=== PATIENT | female | born 1950 | race African-American/Black ===

== ENCOUNTER 2017-12-15 17:37 | Emergency (ER) | payer OTHER, MEDICARE ==
[~2017-12-15] VITALS: Ht 160 cm; Wt 100.0 kg
[~2017-12-15 17:37] MED LIST: HTN MED; [UNRECOGNIZED DRUG - REMARK]
[2017-12-15 17:45] VITALS: BP 137/70; PULSE 80; RESP 16; TEMP 97.2; O2SAT 96
[2017-12-15 19:14] VITALS: BP_SYST 113; BP_SYST 135; BP_DIAS 64; BP_DIAS 75; PULSE 93; RESP 18; O2SAT 97
--- NOTE | 2017-12-15 19:39 | PD ---
HPI Chief Complaint: Medical Clearance Time Seen by Provider: 19:08 Travel History International Travel<30 days: No Contact w/Intl Traveler<30days: No Traveled to known affect area: No History of Present Illness HPI pt has sweats chills and dirrhea for 5 days took acidophilus for 2 days and now more formed stool but it is blackish and mucous covered now . 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 Patient has a history of hypertension she is on amlodipine and she also has a history of tuberculosis exposure years ago never treated but followed with serial chest x- rays. She has no cough at this time. Her complaint is sweats chills weakness and diarrhea for 5 days then stool turned blackish. PFSH Past Medical History Blood Disorders: Yes (HX HEP C) Heart Rhythm Problems: No Cardiac Catheterization: No Cardiovascular Problems: Yes (PALPITATIONS) High Cholesterol: Yes Congestive Heart Failure: No Diabetes: No Diminished Hearing: No Genitourinary: Yes (HX KIDNEY INFECTION) Hypertension: Yes Immunizations Current: Yes Myocardial Infarction: No Menopausal: Yes Past Surgical History Coronary Artery Bypass Graft: No Gynecologic Surgery: Yes (LUMP RIGHT BREAST REMOVED) Family History Family Myocardial Infarction: Yes (father, brother) Social History Alcohol Use: Yes (SOCCIALLY) Tobacco Use: No Substance Use: No Allergies-Medications (Allergen,Severity, Reaction): Coded Allergies: Iodinated Contrast- Oral and IV Dye (Verified Allergy, Severe, 12/15/17) diatrizoate meglumine (Unverified Allergy, Severe, RASH,ITCHING, 12/15/17) HIVES gadobenic acid (Unverified Allergy, Severe, RASH,ITCHING, 12/15/17) HIVES gadodiamide (Unverified Allergy, Severe, RASH,ITCHING, 12/15/17) HIVES gadoteridol (Unverified Allergy, Severe, RASH,ITCHING, 12/15/17) HIVES iodixanol (Unverified Allergy, Severe, RASH,ITCHING, 12/15/17) HIVES iohexol (Unverified Allergy, Severe, RASH,ITCHING, 12/15/17) HIVES Reported Meds & Prescriptions Reported Meds & Active Scripts Active Levaquin (Levofloxacin) 500 Mg Tablet 500 Mg PO DAILY Reported [[place] Pill] [Htn Med] Review of Systems Except as stated in HPI: all other systems reviewed are Neg General / Constitutional: Positive: Fever, Chills Gastrointestinal: Positive: Nausea, Diarrhea, Abdominal Pain Physical Exam Narrative GENERAL: Nontoxic-appearing SKIN: Warm and dry. HEAD: Atraumatic. Normocephalic. EYES: Pupils equal and round. No scleral icterus. No injection or drainage. ENT: No nasal bleeding or discharge. Mucous membranes pink and moist. NECK: Trachea midline. No JVD. CARDIOVASCULAR: Regular rate and rhythm. RESPIRATORY: No accessory muscle use. Clear to auscultation. Breath sounds equal bilaterally. GASTROINTESTINAL: Abdomen mildly obese minimal tenderness in the lower quadrants :soft, nondistended. Hepatic and splenic margins not palpable. Rectal exam was negative for Hemoccult MUSCULOSKELETAL: Extremities without clubbing, cyanosis, or edema. No obvious deformities. NEUROLOGICAL: Awake and alert. No obvious cranial nerve deficits. Motor grossly within normal limits. Five out of 5 muscle strength in the arms and legs. Normal speech. PSYCHIATRIC: Appropriate mood and affect; insight and judgment normal. Rectal exam: patient is guaiac negative stool is dark blackish stool but it is guaiac negative--> on the Hemoccult cards Data Data Last Documented VS Vital Signs Date Time Temp Pulse Resp B/P (MAP) Pulse Ox O2 Delivery O2 Flow Rate FiO2 12/15/17 22:37 12/15/17 22:35 78 18 99 Room Air 12/15/17 17:45 97.2 Orders Orders Electrocardiogram (12/15/17 19:14) Complete Blood Count With Diff (12/15/17 19:14) Comprehensive Metabolic Panel (12/15/17 19:14) Ckmb (Isoenzyme) Profile (12/15/17 19:14) Troponin I (12/15/17 19:14) Lipase (12/15/17 19:14) Chest, Pa & Lat (12/15/17 19:14) Ketorolac Inj (Toradol Inj) (12/15/17 19:45) Sodium Chlorid 0.9% 500 Ml Inj (Ns 500 M (12/15/17 19:45) Influenzae A/B Antigen (12/15/17 20:19) Urinalysis - C+S If Indicated (12/15/17 20:19) CKMB (12/15/17 19:16) CKMB% (12/15/17 19:16) Urine Culture (12/15/17 20:23) Ceftriaxone Inj (Rocephin Inj) (12/15/17 21:45) Labs Laboratory Tests Test 12/15/17 19:16 12/15/17 20:23 White Blood Count 7.3 TH/MM3 Red Blood Count 5.06 MIL/MM3 Hemoglobin 15.0 GM/DL Hematocrit 45.6 % Mean Corpuscular Volume 90.2 FL Mean Corpuscular Hemoglobin 29.6 PG Mean Corpuscular Hemoglobin Concent 32.9 % Red Cell Distribution Width 12.8 % Platelet Count 287 TH/MM3 Mean Platelet Volume 8.0 FL Neutrophils (%) (Auto) 47.6 % Lymphocytes (%) (Auto) 42.8 % Monocytes (%) (Auto) 8.4 % Eosinophils (%) (Auto) 0.8 % Basophils (%) (Auto) 0.4 % Neutrophils # (Auto) 3.5 TH/MM3 Lymphocytes # (Auto) 3.1 TH/MM3 Monocytes # (Auto) 0.6 TH/MM3 Eosinophils # (Auto) 0.1 TH/MM3 Basophils # (Auto) 0.0 TH/MM3 CBC Comment DIFF FINAL Differential Comment Blood Urea Nitrogen 11 MG/DL Creatinine 1.27 MG/DL Random Glucose 101 MG/DL Total Protein 8.6 GM/DL Albumin 3.6 GM/DL Calcium Level 8.8 MG/DL Alkaline Phosphatase 128 U/L Aspartate Amino Transf (AST/SGOT) 66 U/L Alanine Aminotransferase (ALT/SGPT) 48 U/L Total Bilirubin 0.7 MG/DL Sodium Level 139 MEQ/L Potassium Level 3.4 MEQ/L Chloride Level 104 MEQ/L Carbon Dioxide Level 23.7 MEQ/L Anion Gap 11 MEQ/L Estimat Glomerular Filtration Rate 51 ML/MIN Total Creatine Kinase 456 U/L Creatine Kinase MB 2.2 NG/ML Creatine Kinase MB % 0.5 % Troponin I LESS THAN 0.02 NG/ML Lipase 141 U/L Urine Color LIGHT-ORANGE Urine Turbidity HAZY Urine pH 5.5 Urine Specific [place] 1.029 Urine Protein 30 mg/dL Urine Glucose (UA) NEG mg/dL Urine Ketones TRACE mg/dL Urine Occult Blood TRACE Urine Nitrite POS Urine Bilirubin NEGATIVE Urine Urobilinogen 2.0 MG/DL Urine Leukocyte Esterase MOD Urine RBC 1 /hpf Urine WBC 5 /hpf Urine Squamous Epithelial Cells 2 /hpf Urine Bacteria MANY /hpf Urine Hyaline Casts 3 /lpf Urine Mucus FEW /lpf Microscopic Urinalysis Comment CULTURE INDICATED MDM Medical Decision Making Medical Screen Exam Complete: Yes Emergency Medical Condition: Yes Interpretation(s) Patient's EKG is normal sinus rhythm at a rate of 86 bpm Differential Diagnosis Patient's guaiac negative her H&H is 15/45 no signs of GI bleed rectal exam is reassuring that the black stool is not from GI hemorrhage chest x-ray labs urine pending at this time. DDX includes viral gastroenteritis, vs diarrhea NOS and possible GB disease or pancreatitis .. Adbominal pain nos Narrative Course Patient's chest x-ray is within normal limits EKG is normal sinus rhythm rate of 86 patient's urine shows positive nitrate and bacteria many as well as leuk esterase as well as white blood cells patient is treated with cephalexin 1 g will be discharged home on Levaquin p.o. Diagnosis Primary Impression: Urinary tract infection Qualified Codes: N30.00 - Acute cystitis without hematuria Patient Instructions: General Instructions, Urinary Traction Infection in Older Adults (ED) Scripts Levofloxacin (Levaquin) 500 Mg Tablet 500 MG PO DAILY for Infection, #5 TAB 0 Refills Prov: Davian Breaux MD 12/15/17 Disposition: 01 DISCHARGE HOME Condition: Good Davian Breaux MD Dec 15, 2017 19:39
[2017-12-15] MEDS ORDERED: KETOROLAC TROMETHAMINE 30 MG/ML (IVP) VIAL IV PUSH ONE (19:45)
[2017-12-15] MEDS ORDERED: SODIUM CHLORID 0.9% 500 ML INJ 500 ML IV ONE (19:45)
[2017-12-15 20:05] LABS: AUTOMATED NEUTROPHIL # 3.5 TH/MM3 (1.8-7.7); BASOPHIL % 0.4 % (0.0-2.0); EOSINOPHIL # 0.1 TH/MM3 (0-0.4); EOSINOPHIL % 0.8 % (0.0-4.0); HEMATOCRIT 45.6 % (35.0-46.0); LYMPH % 42.8 % (9.0-44.0); LYMPHOCYTE # 3.1 TH/MM3 (1.0-4.8); MEAN CELL VOLUME 90.2 FL (80.0-100.0); MEAN CORPUSCULAR HEMOGLOBIN 29.6 PG (27.0-34.0); MEAN CORPUSCULAR HGB CONC 32.9 % (32.0-36.0); MONO % 8.4 % (0.0-8.0); MONOCYTE # 0.6 TH/MM3 (0-0.9); NEUT % 47.6 % (16.0-70.0); PLATELET COUNT 287 TH/MM3 (150-450); RED BLOOD COUNT 5.06 MIL/MM3 (4.00-5.30); RED CELL DISTRIBUTION WIDTH 12.8 % (11.6-17.2); WHITE BLOOD COUNT 7.3 TH/MM3 (4.0-11.0)
[2017-12-15 20:16] LABS: ALT (GPT) 48 U/L (10-53)
[2017-12-15 20:20] LABS: ALKALINE PHOSPHATASE 128 U/L (45-117); TOTAL BILIRUBIN ADULT 0.7 MG/DL (0.2-1.0); TOTAL PROTEIN 8.6 GM/DL (6.4-8.2); TROPONIN I LESS THAN 0.02 NG/ML (0.02-0.05)
--- NOTE | 2017-12-15 20:26 | RADRPT ---
EXAM DATE/TIME: 12/15/2017 19:43 [facility] COMPARISON: No previous studies available for comparison. INDICATIONS : Patient complains of chest pain. [facility] MEDICAL HISTORY : None. SURGICAL HISTORY : None. ENCOUNTER: Initial ACUITY: 1 day PAIN SCORE: 3/10 LOCATION: chest FINDINGS: PA and lateral views of the chest demonstrate the lungs to be symmetrically aerated without evidence of mass, infiltrate or effusion. The cardiomediastinal contours are unremarkable. Osseous structure s are intact. CONCLUSION: No acute disease. Rafael Schulz MD on December 15, 2017 at 20:24 Board Certified Radiologist. This report was verified electronically.
[2017-12-15 20:28] LABS: ALBUMIN 3.6 GM/DL (3.4-5.0); AST (GOT) 66 U/L (15-37); BICARBONATE 23.7 MEQ/L (21.0-32.0); BLOOD UREA NITROGEN 11 MG/DL (7-18); CALCIUM 8.8 MG/DL (8.5-10.1); CHLORIDE 104 MEQ/L (98-107); CREATININE 1.27 MG/DL (0.50-1.00); GLOMERULAR FILTRATION RATE 51 ML/MIN (>89); GLUCOSE,RANDOM 101 MG/DL (74-106); SODIUM (NA) 139 MEQ/L (136-145)
[2017-12-15 21:12] LABS: BACTERIA, URINE MANY /hpf; BLOOD, URINE TRACE (NEG); GLUCOSE,URINE NEG (NEG); HYALINE CAST, URINE 3 /lpf (RARE); KETONE, URINE TRACE mg/dL (NEG); MUCUS URINE FEW /lpf (OCC); NITRITE,URINE POS (NEG); PH, URINE 5.5 (5.0-8.5); SQUAMOUS EPITHELIAL CELL URINE 2 /hpf (0-5); URINE LEUKOCYTE ESTERASE MOD (NEG)
[2017-12-15 21:17] LABS: URINE COLOR LIGHT-ORANGE (YELLW/STRAW)
[2017-12-15 21:30] LABS: BILIRUBIN, URINE NEGATIVE (NEG)
[2017-12-15] MEDS ORDERED: cefTRIAXone INJ 1,000 MG in SODIUM CHLORIDE 0.9% INJ 100 ML IV ONE (21:45)
[2017-12-15] MEDS ORDERED: LEVA500T33 PO (21:51)
[2017-12-15 22:35] VITALS: BP 137/77; PULSE 78; RESP 18; O2SAT 99
--- NOTE | 2017-12-16 14:18 | EKG ---
Date Performed: 12/15/2017 Time Performed: 19:20:59 PTAGE: 67 years EKG: Sinus rhythm VOLTAGE CRITERIA FOR LVH ABNORMAL ECG Compared to PREVIOUS TRACING , QRS voltage has increased in leads I and aVL. PREVIOUS TRACIN2006 22.12 DOCTOR: Casimiro Sosa Interpretating Date/Time 12/16/2017 14:17:55
== END 2017-12-15 22:42 | disposition home or self-care (01) ==
LOC: NEPE 17:37
DX: N30.00 Acute cystitis without hematuria (principal); B96.20 Unspecified Escherichia coli [E. coli] as the cause of diseases classified elsewhere; R94.31 Abnormal electrocardiogram [ECG] [EKG]; I10 Essential (primary) hypertension; E78.00 Pure hypercholesterolemia, unspecified; Z86.19 Personal history of other infectious and parasitic diseases; Z88.8 Allergy status to other drugs, medicaments and biological substances; Z79.899 Other long term (current) drug therapy
CPT/HCPCS: 71046; 80053; 81001; 82550; 82552; 83690; 84484; 85025; 87077; 87086; 87186; 87804; 93005; 96361; 96365; 96375; 99285; J0696; J1885; J7040